=== PATIENT | male | born 1980 | race Hispanic/Latino ===

== ENCOUNTER 2018-08-13 01:30 | Emergency (ER) | payer SELFPAY ==
[2018-08-13 01:41] VITALS: O2SAT 98
--- NOTE | 2018-08-13 02:04 | ED PDOC ---
HPI: Psych/Substance Abuse Chief Complaint (Provider): etoh History Per: EMS Additional Complaint(s): 38 y/o male ambulates to ED with EMS for evaluation of alcohol intoxication. Patient visiting from [place]; found sleeping in the hallway of a building. Patient sleeping on exam; arousable to sternal rub <Na Glaser C - Last Filed: 08/13/18 05:50> <Larry Bustamante Y - Last Filed: 08/13/18 07:06> Time Seen by Provider: 08/13/18 01:44 Chief Complaint (Nursing): Alcohol Ingestion Past Medical History Reviewed: Historical Data, Nursing Documentation, Vital Signs Vital Signs: Last Vital Signs Temp 98 F 08/13/18 01:39 Pulse 89 08/13/18 01:39 Resp 18 08/13/18 01:39 BP 128/73 08/13/18 01:39 Pulse Ox 98 08/13/18 01:39 - Family History Family History: States: No Known Family Hx <Na Glaser C - Last Filed: 08/13/18 05:50> Vital Signs: Last Vital Signs Temp 98 F 08/13/18 01:39 Pulse 89 08/13/18 01:39 Resp 18 08/13/18 01:39 BP 128/73 08/13/18 01:39 Pulse Ox 98 08/13/18 05:55 <Larry Bustamante Y - Last Filed: 08/13/18 07:06> - Allergies Allergies/Adverse Reactions: Allergies Allergy/AdvReac Type Severity Reaction Status Date / Time No Known Allergies Allergy Verified 08/13/18 01:39 Review of Systems ROS Statement: Except As Marked, All Systems Reviewed And Found Negative <Na Glaser C - Last Filed: 08/13/18 05:50> Physical Exam - Reviewed Nursing Documentation Reviewed: Yes Vital Signs Reviewed: Yes - Physical Exam Appears: Positive for: Well, Non-toxic, No Acute Distress Head Exam: Positive for: ATRAUMATIC, NORMAL INSPECTION, NORMOCEPHALIC Skin: Positive for: Normal Color Eye Exam: Positive for: Normal appearance, EOMI, PERRL ENT: Positive for: Normal ENT Inspection Cardiovascular/Chest: Positive for: Regular Rate, Rhythm Respiratory: Positive for: Normal Breath Sounds Extremity: Positive for: Normal ROM Neurological/Psych: Positive for: Alert (responds to tactile stimuli) <Na Glaser - Last Filed: 08/13/18 05:50> - ECG O2 Sat by Pulse Oximetry: 98 - Progress ED Course And Treament: -accucheck -alcohol 3:30 Patient sleeping; arousable to tactile stimuli 5:00 Patient sleeping; arousable to tactile stimuli <JailynNa C - Last Filed: 08/13/18 05:50> Medical Decision Making Medical Decision Makin:00 Patient is stable and is no distress. He will be signed out to Dr. Bob pending an administrative name change. Likely to be discharged after. --- Scribe Attestation: Documented by Danae Perez acting as a scribe for Larry Bustamante MD. Provider Scribe Attestation: All medical record entries made by the Scribe were at my direction and personally dictated by me. I have reviewed the chart and agree that the record accurately reflects my personal performance of the history, physical exam, medical decision making, and the department course for this patient. I have also personally directed, reviewed, and agree with the discharge instructions and disposition. <Larry Bustamante Y - Last Filed: 08/13/18 07:06> Disposition - Disposition Disposition Time: 06:00 Patient Signed Over To: Larry Bustamante Handoff Comments: pending sobriety <Na Glaser - Last Filed: 08/13/18 05:50> - Patient ED Disposition Is Patient to be Admitted: Transfer of Care - Disposition Disposition: Transfer of Care Disposition Time: 07:00 Patient Signed Over To: Brayan Bob III Handoff Comments: pending sobriety <Larry Bustamante - Last Filed: 08/13/18 07:06> - Clinical Impression Clinical Impression: Alcohol intoxication - Disposition Condition: STABLE Forms: [employer] (German)
--- NOTE | 2018-08-13 07:22 | ED PDOC ---
- ECG O2 Sat by Pulse Oximetry: 98 (RA) Pulse Ox Interpretation: Normal Medical Decision Making Medical Decision Makin 38yo male, brought to ER due to alcohol intoxication. Patient signed out to me by Dr. Bustamante pending clinical sobriety. Bedside rounds performed, patient resting in room comfortably. 0812 Patient is awake, alert and oriented x 3, with steady gait. Patient stable for discharge home. Scribe Attestation: Documented by Jeri Gutierrez acting as a scribe for Brayan Bob DO. Provider Scribe Attestation: All medical record entries made by the Scribe were at my direction and personally dictated by me. I have reviewed the chart and agree that the record accurately reflects my personal performance of the history, physical exam, medical decision making, and the department course for this patient. I have also personally directed, reviewed, and agree with the discharge instructions and disposition. Disposition - Clinical Impression Clinical Impression: Alcohol intoxication - POA Present On Arrival: None - Disposition Referrals: Alcoholics Anonymous [Outside] Disposition: Routine/Home Disposition Time: 08:10 Condition: STABLE Additional Instructions: Return to ER for any concern, avoid alcohol and seek advice or help if you think you have a drinking problem. Instructions: Alcohol Use - When Is Drinking a Problem? Forms: [employer] (Swedish)
[2018-08-13 08:15] VITALS: BP 126/78; PULSE 78; RESP 20; TEMP 97.7
== END 2018-08-13 08:20 | disposition home or self-care (01) ==
LOC: H.ER 01:30
DX: F10.129 Alcohol abuse with intoxication, unspecified (principal)
CPT/HCPCS: 82948; 99284; G0480